=== PATIENT | female | born 1980 | race Caucasian/White ===

== ENCOUNTER → 2024-01-03 16:38 | Outpatient (REF) | payer MEDICARE, OTHER, SELFPAY | LOC: MRI 3T 16:38 | PROVIDERS: ATTENDING PHYSICIAN Surgery; FAMILY PHYSICIAN Family Medicine; OTHER PHYSICIAN Obstetrics & Gynecology | DX: N63.10 Unspecified lump in the right breast, unspecified quadrant (principal); Z80.3 Family history of malignant neoplasm of breast; N63.20 Unspecified lump in the left breast, unspecified quadrant | CPT/HCPCS: 77049; A9585 ==

== ENCOUNTER 2024-06-11 13:33 | Inpatient (IN) | payer MEDICARE, OTHER, SELFPAY ==
[2024-06-08 23:58] VITALS: BP 157/103
[2024-06-09] VITALS (10 sets, daily range): BP systolic 128–178; BP diastolic 73–101; BMI 29.0
--- NOTE | 2024-06-09 00:23 | ED.GENMED ---
History of Present Illness
<Joseph Linda MD, Resident - Last Filed: 06/09/24 03:51>
General
Chief Complaint: Abdominal Pain
Time Seen by Provider: 06/09/24 00:07
History of Present Illness
History of Present Illness:
44-year-old female with a history of migraine, seizure, lupus, presented to the ED with acute severe abdominal pain. The pain originally originates in the epigastrium and radiates to the back, and has been ongoing intermittently for the past 2
weeks. Patient describes the pain as 'intermittent gnawing' which became so severe today which prompted her to come to the ED. Additionally patient reports nausea and had experienced more than 4 episodes of vomiting yesterday which has been
persistent for the past 2 weeks. She visited her primary care physician recently and was prescribed Zofran, which initially helped with nausea. Patient states that she has been having ongoing diarrhea for the past 2 weeks. Patient is able to eat
but unable to keep anything down, as she experiences vomiting and diarrhea. Her last menstrual period was 2 weeks ago, sexually active, not using contraception.
Past History
<Joseph Linda MD, Resident - Last Filed: 06/09/24 03:51>
Past History
ED Past Medical History: GERD and Other (SLE)
ED Past Surgical History: , Urological and Other (Has had a ureteral stent placed, and also ureteroplasty )
Social History
Tobacco: Non-smoker
Alcohol: None
Drug: None
Personal:
Living: with family
Employment: Employed
Family History
Family History: Hypertension
Review of Systems
<Joseph Linda MD, Resident - Last Filed: 06/09/24 03:51>
Review of Systems
ABD/GI: Reports abdominal pain, nausea, vomiting and diarrhea
Phy Exam
<Joseph Linda MD, Resident - Last Filed: 06/09/24 03:51>
General Physical Exam
General Presentation: moderate distress
Gastrointestinal Exam
Gastrointestinal Exam: normal bowel sounds, soft, non distended and tender (Epigastric)
Course
<Joseph Linda MD, Resident - Last Filed: 06/09/24 03:51>
Orders/Labs/Results
Orders:
Orders
06/09/24 00:19
0.9% Sodium Chloride 250 ml [Nss] 250 ml IV BOLUS
Ketorolac [Toradol] 30 mg IV NOW STA
06/09/24 00:22
Electrocardiogram (*1) Urgent
Reason for Study: Abdominal Pain
EKG- Treatment ONCE
06/09/24 00:28
Add On- LAB Urgent
Tests Added?: serum hcg qualitative
06/09/24 00:34
Complete Blood Count/With Diff Urgent
Comprehensive Metabolic Panel Urgent
HCG, Serum Qualitative Screen Urgent
Comment: ADD ON
Lipase Urgent
06/09/24 00:35
Ondansetron HCl [Zofran] 4 mg PO NOW STA
06/09/24 00:36
Ondansetron Injectable [Zofran] 4 mg .ROUTE .STK-MED ONE
06/09/24 00:38
Ondansetron Injectable [Zofran] 4 mg IV NOW STA
06/09/24 00:40
0.9% Sodium Chloride 1000 ml [Nss] 1,000 ml IV BOLUS
HYDROmorphone [Dilaudid] 1 mg IV NOW STA
06/09/24 01:30
Urinalysis Reflex To Culture Urgent
Date Specimen was Collected: 06/09/24
Time Specimen was Collected: 01:29
Urine Drug Abuse Screen Urgent
Date Specimen was Collected: 06/09/24
Time Specimen was Collected: 01:29
06/09/24 01:35
CT Abd/pel Without Iv Or Oral Urgent
Comment:
Reason For Exam: abdominal pain
06/09/24 02:35
Mag Hydrox/Al Hydrox/Simeth [Maalox] 30 ml Phenobarb/Hyoscy/Atropine/Scop [] 10 ml PO NOW
Pantoprazole [Protonix IV] 40 mg IV NOW STA
06/09/24 02:42
Mag Hydrox/Al Hydrox/Simeth [Maalox] 30 ml .ROUTE .STK-MED ONE
Phenobarb/Hyoscy/Atropine/Scop [] 10 ml .ROUTE .STK-MED ONE
06/09/24 02:43
Sterile Water [Sterile Water For Injection] 10 ml .ROUTE .STK-MED ONE
06/09/24 03:02
Ondansetron HCl [Zofran] 4 mg PO NOW STA
06/09/24 03:35
Urine Drug Abuse Screen Routine
06/09/24 03:40
Admit/Transfer Patient As Directed
Co-Sign Provider:
Level of Care: Observation services
Assign to:: Medical/Surgical
Physician / Group: htay
Diagnosis: Intractable acute on chronic intermittent abdominal pian with N/V/D
Reason for Hospitalization: Intractable acute on chronic intermittent abdominal pian with N/V/D of unclear
origins
06/09/24 03:41
Add On- LAB Urgent
Tests Added?: urine drug screen
06/09/24 03:42
Code Status As Directed
Resuscitation Status: Full Code
Abnormal Lab Results
06/09/24
00:34
MCV 79.4 L fL
(81.0-99.0)
MCH 26.6 L pg
(27.0-31.0)
RDW 14.8 H %
(11.5-14.5)
MPV 11.3 H fL
(7.4-10.4)
Absolute Neuts (auto) 7.5 H 10^3/uL
(1.4-6.5)
Absolute Monos (auto) 0.7 H 10^3/uL
(0.1-0.6)
Neutrophils % 75.7 H %
(42.2-75.2)
Lymphocytes % 15.7 L %
(20.5-51.1)
Chloride 111 H mmol/L
(98-107)
Carbon Dioxide 19 L mmol/L
(22-30)
06/09/24 00:34
06/09/24 00:34
Vital Signs
Initial and Last Documented VS:
Initial Vital Signs
Temp Pulse Resp BP Pulse Ox
98.1 F 98 26 157/103 100
06/08/24 23:58 06/08/24 23:58 06/08/24 23:58 06/08/24 23:58 06/08/24 23:58
Last Documented Vital Signs
Temp Pulse Resp BP Pulse Ox
98.1 F 58 18 152/90 97
06/08/24 23:58 06/09/24 03:00 06/09/24 03:00 06/09/24 03:00 06/09/24 03:00
<Immanuel Christensen, DO - Last Filed: 06/09/24 00:44>
Orders/Labs/Results
Orders:
Orders
06/09/24 00:19
0.9% Sodium Chloride 250 ml [Nss] 250 ml IV BOLUS
Ketorolac [Toradol] 30 mg IV NOW STA
06/09/24 00:22
Electrocardiogram (*1) Urgent
Reason for Study: Abdominal Pain
EKG- Treatment ONCE
06/09/24 00:28
Add On- LAB Urgent
Tests Added?: serum hcg qualitative
06/09/24 00:34
Complete Blood Count/With Diff Urgent
Comprehensive Metabolic Panel Urgent
HCG, Serum Qualitative Screen Urgent
Comment: ADD ON
Lipase Urgent
06/09/24 00:35
Ondansetron HCl [Zofran] 4 mg PO NOW STA
06/09/24 00:36
Ondansetron Injectable [Zofran] 4 mg .ROUTE .STK-MED ONE
06/09/24 00:38
Ondansetron Injectable [Zofran] 4 mg IV NOW STA
06/09/24 00:40
0.9% Sodium Chloride 1000 ml [Nss] 1,000 ml IV BOLUS
HYDROmorphone [Dilaudid] 1 mg IV NOW STA
06/09/24 01:30
Urinalysis Reflex To Culture Urgent
Date Specimen was Collected: 06/09/24
Time Specimen was Collected: 01:29
Urine Drug Abuse Screen Urgent
Date Specimen was Collected: 06/09/24
Time Specimen was Collected: 01:29
06/09/24 01:35
CT Abd/pel Without Iv Or Oral Urgent
Comment:
Reason For Exam: abdominal pain
06/09/24 02:35
Mag Hydrox/Al Hydrox/Simeth [Maalox] 30 ml Phenobarb/Hyoscy/Atropine/Scop [] 10 ml PO NOW
Pantoprazole [Protonix IV] 40 mg IV NOW STA
06/09/24 02:42
Mag Hydrox/Al Hydrox/Simeth [Maalox] 30 ml .ROUTE .STK-MED ONE
Phenobarb/Hyoscy/Atropine/Scop [] 10 ml .ROUTE .STK-MED ONE
06/09/24 02:43
Sterile Water [Sterile Water For Injection] 10 ml .ROUTE .STK-MED ONE
06/09/24 03:02
Ondansetron HCl [Zofran] 4 mg PO NOW STA
06/09/24 03:35
Urine Drug Abuse Screen Routine
06/09/24 03:40
Admit/Transfer Patient As Directed
Co-Sign Provider:
Level of Care: Observation services
Assign to:: Medical/Surgical
Physician / Group: htay
Diagnosis: Intractable acute on chronic intermittent abdominal pian with N/V/D
Reason for Hospitalization: Intractable acute on chronic intermittent abdominal pian with N/V/D of unclear
origins
06/09/24 03:41
Add On- LAB Urgent
Tests Added?: urine drug screen
06/09/24 03:42
Code Status As Directed
Resuscitation Status: Full Code
Abnormal Lab Results
06/09/24
00:34
MCV 79.4 L fL
(81.0-99.0)
MCH 26.6 L pg
(27.0-31.0)
RDW 14.8 H %
(11.5-14.5)
MPV 11.3 H fL
(7.4-10.4)
Absolute Neuts (auto) 7.5 H 10^3/uL
(1.4-6.5)
Absolute Monos (auto) 0.7 H 10^3/uL
(0.1-0.6)
Neutrophils % 75.7 H %
(42.2-75.2)
Lymphocytes % 15.7 L %
(20.5-51.1)
Chloride 111 H mmol/L
(98-107)
Carbon Dioxide 19 L mmol/L
(22-30)
06/09/24 00:34
06/09/24 00:34
Vital Signs
Initial and Last Documented VS:
Initial Vital Signs
Temp Pulse Resp BP Pulse Ox
98.1 F 98 26 157/103 100
06/08/24 23:58 06/08/24 23:58 06/08/24 23:58 06/08/24 23:58 06/08/24 23:58
Last Documented Vital Signs
Temp Pulse Resp BP Pulse Ox
98.1 F 58 18 152/90 97
06/08/24 23:58 06/09/24 03:00 06/09/24 03:00 06/09/24 03:00 06/09/24 03:00
<Joseph Linda MD, Resident - Last Filed: 06/09/24 03:51>
*Critical Care Note
Total Time (30-74mins, 75-104mins- exclusive of procedures): Not Applicable
<Joseph Linda MD, Resident - Last Filed: 06/09/24 03:51>
Update Note
Update Note:
44-year-old female presented to the ED with severe abdominal epigastric pain radiating to her back.
Differential diagnosis
1. Acute pancreatitis
2. Choledocholithiasis
3. Ectopic
4. Bowel obstruction
This patient's physical examination reveals a tenderness to touch in the epigastrium, consult to general: No rebound tenderness or guarding, making peritonitis questionable. Patient is hemodynamically stable. Laboratory evaluation include CBC CMP
lipase and a CT scan of the abdomen pelvis to check for pancreatitis or bowel obstruction. Beta-hCG test will also be performed to rule out ectopic . The patient has a history of cholecystectomy and is currently taking 200 mg pregabalin
for neuropathy. CT scan of the abdomen/pelvis and lab evaluation is unremarkable. Patient is still nauseous, having up intermittent severe abdominal pain. Plan is to admit the patient for a intractable pain.
ED Attending Note
<Joseph Linda MD, Resident - Last Filed: 06/09/24 03:51>
-
Portions of this chart may have been created with voice recognition software.� Occasional wrong word or��sound alike� substitutions may have occurred due to the inherent limitations of voice recognition software.
<Immanuel Christensen DO - Last Filed: 06/09/24 00:44>
ED Attending Note
Patient seen and examined by attending physician: Yes
I performed a history and physical exam of patient and discussed management with resident, I reviewed resident's note and agree with documented findings and plan of care.: Yes
ED Attending Note:
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
scan
Discharge Plan
Departure
Patient Disposition: Admit
Date of Disposition: 06/09/24
Time of Disposition: 03:37
Admit to: Med/Surg
Presentation/result/management discussed w/ accepting MD/DO: Hospitalist
Patient with high blood pressure during this ER visit?: No
Condition: Good
Covid-19: Not Applicable
Discharge Problem:
Abdominal pain
Instructions: Abdominal Pain
Prescriptions:
No Action
topiramate [Topamax] 200 mg Tablet
250 mg PO HS
hydroxychloroquine 200 mg Tablet
200 mg PO HS
pregabalin [Lyrica] 200 mg Capsule
200 mg PO HS
pantoprazole [Protonix] [address] For Susp In Packet
40 mg PO BID
cholecalciferol (vitamin D3) [Vitamin D3] 50 mcg (2,000 unit) Tablet
50 mcg PO DAILY
Women's Multivitamin 18 mg iron-400 mcg-500 mg Tablet
1 tab PO DAILY
tahshtegzc-gfeijzyzlzpfi-glbq [Fioricet] 50-325-40 mg Tablet
1 tab PO Q6H PRN (Reason: migraines)
Referrals:
Massimo Javier DO [Family Provider] -
Interventions
Interventions:
*General Assessment Last Done: 06/08/24 23:58
*Neglect/Abuse Screening Last Done: 06/08/24 23:58
DS-Qzibwf-Aummoxqthu Assessment Last Done: 06/09/24 00:45
Discharge Date and Time
Print Language: POLISH
[2024-06-09] MEDS: TORADOL 30 MG IV (00:30)
[2024-06-09] MEDS: NSS 1000 IV ×3 (00:30→18:18)
[2024-06-09] MEDS: ZOFRAN 4 MG IV ×4 (00:38→20:06)
[2024-06-09] MEDS: DILAUDID 1 MG IV ×3 (00:46→21:03)
[2024-06-09 00:51] LABS: % Basophils 0.7 % (0-2); % Eosinophils 0.4 % (0-6); % Immature Granulocytes 0.3 % (0-0.5); % Lymphocytes 15.7 % (20.5-51.1); % Monocytes 7.2 % (1.7-9.3); % Neutrophils 75.7 % (42.2-75.2); Absolute Basophils 0.1 10^3/uL (0-0.2); Absolute Lymphocytes 1.6 10^3/uL (1.2-3.4); Absolute Monocytes 0.7 10^3/uL (0.1-0.6); Absolute Neutrophils 7.5 10^3/uL (1.4-6.5); HCG, Serum Qualitative Screen Negative; Hematocrit 37.3 % (37.0-47.0); Hemoglobin 12.5 g/dL (12.0-16.0); Mean Corp Hgb Conc. 33.5 g/dL (33.0-37.0); Mean Corpuscular Hgb 26.6 pg (27.0-31.0); Mean Corpuscular Volume 79.4 fL (81.0-99.0); Mean Platelet Volume 11.3 fL (7.4-10.4); Nucleated Red Blood Cells % 0 %; Platelet Count 294 10^3/uL (130-400); Red Cell Dist. Width 14.8 % (11.5-14.5); White Blood Cell Count 9.9 10^3/uL (4.8-10.8)
[2024-06-09 01:22] LABS: ALT (SGPT) 13 U/L (0-35); AST (SGOT) 18 U/L (14-36); Albumin 4.5 g/dl (3.5-5.0); Alkaline Phosphatase 58 U/L (38-126); Blood Urea Nitrogen 14 mg/dl (7-17); Calcium 9.8 mg/dl (8.4-10.2); Carbon Dioxide 19 mmol/L (22-30); Chloride 111 mmol/L (98-107); Estimated Creatinine Clearance 91 ml/min; Glucose 95 mg/dl (70-99); Lipase 97 U/L (23-300); Potassium 3.7 mmol/L (3.5-5.1); Sodium 139 mmol/L (135-145); Total Bilirubin 0.6 mg/dl (0.2-1.3); Total Protein 6.9 g/dl (6.3-8.2); eGFR > 60.00
[2024-06-09 01:37] LABS: Urine Albumin Negative (Neg - Trace); Urine Bilirubin Negative (Negative); Urine Character Clear (Clear); Urine Color Yellow; Urine Glucose Negative (Negative); Urine Ketone Negative (Negative); Urine Leukocyte Negative (Negative); Urine Nitrite Negative (Negative); Urine Occult Blood Negative (Negative); Urine Specific Gravity 1.005 (<1.030); Urine Urobilinogen Negative (Neg - 1+)
[2024-06-09] MEDS: PROTONIX IV 40 MG IV ×2 (02:45→20:06)
[2024-06-09] MEDS: MAALOX 40 PO (02:45)
[2024-06-09] MEDS: ZOFRAN 4 MG PO (03:19)
--- NOTE | 2024-06-09 03:35 | HPS.HSE ---
Family Physician
-
Family Physician: Massimo Javier
Chief Complaint
-
abdominal pain with N/V/D
History of Present Illness
HPI
44F HX lupus, Sz common migraines seen at ER for evaluation of abdominal pain
Abdominal pain; acute on chronic intermittent
- intermittently for last 2 weeks
- at epigastrium with radiates to the back. Normal Lipase: received IV Dilaudid 1mg plus IV Toradol 3 mg at ER
- associated with N/ V more than 4 episodes yesterday : Received 3 doses of IV Zofran 4mg at ER
- unable to keep anything down
- also ongoing diarrhea for last 2 weeks
- HX abdominal pain with many ER visits in the past
At ER:
unremarkable VSS
Unremarkable LFTs and Lipase
CT AP is unremarkable for acute process
Medical History
Past Medical History
Past Medical History: Reports Other ( Lupus.Migraine , abdominal pain )
Past Surgical History: Reports Other
Additional Past Surgical History:
Cholecystectomy.
section.
UPJ surgery.
Social History
Tobacco: Non-smoker
Alcohol: Occasional
Drug: None
Family History
Family History: Not pertinent
Allergies / Home Medications
Allergies reflects when Allergies were last updated in [employer]
Home Medications with original date entered in [employer]
Allergy/Medication List:
Allergies
Allergy/AdvReac Type Severity Reaction Status Date / Time
latex Allergy skin Verified 09/16/23 06:42
shedding
methotrexate [Methotrexate] Allergy Mucositis Verified 09/16/23 06:42
Penicillins Allergy Hives Verified 09/16/23 06:42
Sulfa (Sulfonamide Allergy Hives Verified 09/16/23 06:42
Antibiotics)
Home Medications
cholecalciferol (vitamin D3) 50 mcg (2,000 unit) tablet (Vitamin D3) 50 mcg PO DAILY 01/10/23
hydroxychloroquine 200 mg tablet 200 mg PO HS 01/10/23
mpzjzxfj-ukv-javs-FA-Ca carb-vit K 18 mg iron-400 mcg-500 mg tablet 1 tab PO DAILY 01/10/23
pantoprazole 40 mg granules delayed-release for susp in packet (Protonix) 40 mg PO BID 01/10/23
pregabalin 200 mg capsule (Lyrica) 200 mg PO HS 01/10/23
topiramate 200 mg tablet (Topamax) 250 mg PO HS 01/10/23
xzzcehvnos-zzvdlzboekxbs-ywljvekc 50 mg-325 mg-40 mg tablet 1 tab PO Q6H PRN migraines 06/09/24
Review of Systems
-
Constitutional: Reports No Symptoms
EENT: Reports No Symptoms
Respiratory: Reports No Symptoms
Cardiac: Reports No Symptoms
Abdomen/GI: Reports See HPI, Abdominal Pain, Nausea, Vomiting and Diarrhea
: Reports No Symptoms
Musculoskeletal: Reports No Symptoms
Skin: Reports No Symptoms
Neurological: Reports No Symptoms
Endocrine: Reports No Symptoms
Hematologic/Lymphatic: Reports No Symptoms
Psych: Reports No Symptoms
Physical Exam
Vital Signs
Vital Signs
Temp Pulse Resp BP Pulse Ox
98.1 F 60 20 141/90 99
06/08/24 23:58 06/09/24 02:00 06/09/24 02:00 06/09/24 02:00 06/09/24 02:00
Physical Exam
General: Conversant, Appears in Distress and Pain (epigastrium )
HEENT: NormoCephalic, Anicteric and Moist mucous membranes
Respiratory: Clear; No Wheezes, Rales or Rhonchi
Cardiac: S1/S2 and Regular Rhythm
Breast: Deferred by me
GI: Soft and Tender (tender epigastrium with light palpation )
Rectal: Deferred by Provider
Genito-urinary: Deferred by me
Musculoskeletal: No Edema
Skin: Warm and Dry
Neuro: Awake and Alert
Psych: Anxious
Laboratory Results
-
06/09/24 00:34
06/09/24 00:34
Laboratory Results
Total Bilirubin 0.6 mg/dl (0.2-1.3) 06/09/24 00:34
AST 18 U/L (14-36) 06/09/24 00:34
ALT 13 U/L (0-35) 06/09/24 00:34
Alkaline Phosphatase 58 U/L (38-126) 06/09/24 00:34
Lipase 97 U/L (23-300) 06/09/24 00:34
Data Reviewed
-
CT Scan: Report Reviewed by me
Lab Data: Labs Reviewed by me
Old Records: Reviewed
Impression/Plan
-
Reviewed VS: afebrile RR 20-25 POx 99 on RA BPand HR are unremarkable
Data
nl WCC
Hgb 12.5 MCV 79
Cl 111
CO2 19
nl Cr
e GFR > 60
Nl LFts
nl Lipase
NEG UA
NEG HCG
CT AP without contrast
- no acute process
- cholecystectomy
- no hydronephrosis
- no SBO
- no aortic dissection
NO PRIOR hospitalist admission:
ASSESSMENT & PLAN
Pending Rx reconciliation
Intractable acute on chronic intermittent abdominal pian with N/V/D DDX : PUdz
unremarkable VSS
Unremarkable LFTs and Lipase
CT AP is unremarkable for acute process
- UDS to complete w/u
- clear diet - ADAT
- Supportive care with IVF, anti emetics and Narcotic PRN
- IV PPI daily
- GI consult
HX Lupus on Hydroxychloroquine and Lyrica
HX Migraine on Topamax
DVT Px: SCD
Code: Full code
Obs MS
[2024-06-09 04:06] LABS: Amphetamines Negative (Negative); Barbiturates Negative (Negative); Benzodiazepines Positive (Negative); Buprenorphine Negative (Negative); Cocaine Negative (Negative); Methadone Negative (Negative); Methamphetamines Negative (Negative)
[2024-06-09 04:07] LABS: Marijuana Negative (Negative); Opiates Positive (Negative); Phencyclidine Negative (Negative); Tricyclic Antidepressants Negative (Negative)
[2024-06-09 04:33] LABS: Fentanyl, Urine Negative (Negative)
[2024-06-09] MEDS: DILAUDID 0.5 MG IV (06:17)
[2024-06-09 07:33] LABS: Hematocrit 37.1 % (37.0-47.0); Hemoglobin 12.4 g/dL (12.0-16.0); Mean Corp Hgb Conc. 33.4 g/dL (33.0-37.0); Mean Corpuscular Hgb 26.7 pg (27.0-31.0); Mean Corpuscular Volume 79.8 fL (81.0-99.0); Platelet Count 269 10^3/uL (130-400); Red Blood Cell Count 4.65 10^6/uL (4.20-5.40); Red Cell Dist. Width 14.8 % (11.5-14.5); White Blood Cell Count 8.3 10^3/uL (4.8-10.8)
[2024-06-09 08:10] LABS: Blood Urea Nitrogen 10 mg/dl (7-17); Calcium 9.2 mg/dl (8.4-10.2); Carbon Dioxide 21 mmol/L (22-30); Chloride 109 mmol/L (98-107); Estimated Creatinine Clearance 97 ml/min; Glucose 87 mg/dl (70-99); Potassium 3.6 mmol/L (3.5-5.1); Sodium 137 mmol/L (135-145); eGFR > 60.00
--- NOTE | 2024-06-09 08:35 | W.PN.HOSP.TC ---
Today's Communication/Plan
-
see bold
Assessment / Plan
Assessment / Plan
HPI: 44yo female presents with epigastric pain, n/v, diarrhea over the last 2 weeks. She has been unable to tolerate POs. Denies recent travel, sick contacts. She had stool studies with her PCP that came back negative. She has hx abd pain in past
evaluated by Dr Garcia- EGD bile gastritis in [address] Cordero as well, dx'd with gastroparesis treated with small frequent meals and reglan for a period of time. Sx stabilized and has not been active until recently. CT negative for acute
pathology. Denies NSAIDs.
#Severe epigastric abdominal pain
#History of bile gastritis
Appreciate GI input, for EGD tomorrow
Increase Protonix to 40 mg IV twice daily, resume Carafate
Avoid NSAIDs
#History of lupus
Continue hydroxychloroquine and Lyrica
#History of migraine headaches
Continue Topamax and Fioricet
DVT prophylaxis�SCDs
Full code
Physical Exam
General: No acute distress
HEENT: Normocephalic, Atraumatic, EOMI, MMM
Respiratory: Clear to Auscultation bilaterally
Cardiac: Normal S1/S2, Regular Rate and Rhythm
GI: Soft, exquisitely tender at the epigastrium, Nondistended, Normal Bowel Sounds
Extremities: No Clubbing, Cyanosis, or Edema
Neuro: Nonfocal/Grossly Intact
Psych: Calm, Cooperative
Derm: No Visible lesions
Anticipated Discharge: Within 24 hours
Subjective/Interval History
-
Date of Service: June 09, 2024
Patient continues to have severe burning epigastric pain, worse with walking. No fever, no vomiting.
Objective Data
-
Labs:
Laboratory Results
06/09/24 06/09/24
00:34 06:26
WBC 9.9 8.3
Hgb 12.5 12.4
Hct 37.3 37.1
Plt Count 294 269
Sodium 139 137
Potassium 3.7 3.6
Chloride 111 H 109 H
Carbon Dioxide 19 L 21 L
BUN 14 10
Creatinine 0.8 0.7
Glucose 95 87
Calcium 9.8 9.2
Total Bilirubin 0.6
AST 18
ALT 13
Alkaline Phosphatase 58
Vital Signs:
Vital Signs
Temp Pulse Resp BP Pulse Ox
97.9 F 77 16 155/95 100
06/09/24 07:00 06/09/24 07:00 06/09/24 07:00 06/09/24 07:00 06/09/24 07:00
[2024-06-09] MEDS: PEPCID 20 MG IV ×2 (11:29→20:06)
[2024-06-09] MEDS: NSS (PRESERVATIVE FREE) 8 ML IV ×2 (11:30→22:30)
[2024-06-09] MEDS: CARAFATE SUSPENSION 1 GM PO (11:30)
--- NOTE | 2024-06-09 11:42 | CON.GI ---
Addendum entered and electronically signed by Christofer Moore MD 06/09/24 13:12:
I saw and examined the patient.
The LEAD SALES CONSULTANT or PA's note was reviewed and I agree with the note.
Comment: 44yo female presents with epigastric pain, n/v, diarrhea over the last 2 weeks. She has been unable to tolerate POs. Denies recent travel, sick contacts. She had stool studies with her PCP that came back negative. She has hx abd pain in
past evaluated by Dr Garcia- EGD bile gastritis in [address] Cordero as well, dx'd with gastroparesis treated with small frequent meals and reglan for a period of time. Sx stabilized and has not been active until recently. CT negative for
acute pathology. Denies NSAIDs
REC:
EGD tomorrow to r/o PUD, gastritis.
Cont clears and can try advancing after EGD
Consider short term reglan if not improving
Cont PPI, carafate
Addendum entered and electronically signed by Rosalind Thomas NP 06/09/24 12:12:
IV pepcid BID and sucralfate also started by Dr. Izaguirre.
Original Note:
Consultation
-
Date/Time Consultation Requested: 06/09/24 @ 05:51
Date/Time Consultation Performed: 06/09/24 @ 11:30
Requesting Provider: Dr. Wright
Performing Provider: HYUN Rodriguez; Dr. Christofer Moore
Reason for Consultation: Intractable acute on chronic intermittent abdominal pian with N/V/D
Medical History
Chief Complaint / HPI
Chief Complaint: abdominal pain, n/v/d
History of Present Illness:
The patient is a pleasant 44-year-old female with a past medical history significant for UPJ obstruction status post multiple ureteral pyeloplasty and ureteral stenting, chronic GERD on PPI, IBS constipation alternating with diarrhea, chronic
abdominal pain, reported gastroparesis, PUD 2001 (reported), migraines, lupus, who presented to the emergency room with complaint abdominal pain, nausea, vomiting, and diarrhea, which remains to evaluate for. Upon review of prior records, the
patient is known to Dr. Garcia outpatient last seen in the office in 2020 for evaluation of abdominal pain. She underwent colonoscopy in 2021 where a 5mm polyp was removed otherwise was normal with no findings to explain her pain. She was advised
to follow-up in the office for re-evaluation but did not return to the office. She had an EGD the same day which showed gastritis and bilious gastric fluid. She has been maintained on PPI therapy chronically for this. Today she reports that she has
been having severe epigastric discomfort that started 2 weeks ago. The pain for like a band around the top of her abdomen that was constant. She notes due to her pain she was unable to eat much, and that started on a bland diet although this was
not helping. She notes several days ago with acute onset of nausea with vomiting and was unable to keep anything down. She also admits to bouts of diarrhea that continued for several days. She saw her PCP who ordered stool studies which all were
negative (Giardia, crypto, ova, parasites, C. difficile, stool culture, norovirus). She was also prescribed Zofran but this did not help. She continues on her daily PPI which also did not help her symptoms. She was fearful that she had a
recurrent peptic ulcer (history of peptic ulcer disease in 2001), therefore she came to the emergency room for further evaluation. She notes multiple bowel movements per day, seeing a small amount of red blood at 1 point but this has resolved. She
denies any hematemesis, and at one point liquids from above and below became clear. She denies any unintentional weight loss despite her loss of appetite. She notes chronically that she does have alternating constipation with diarrhea at baseline.
She also admits to chronic abdominal pain that has been followed historically. She has seen Dr. Cordero at [place] in the past and was told that she had gastroparesis at 1 time. She denies any history of diabetes or use of narcotics. She does
take Fioricet for migraines which she had been using more frequently the past month or so. She otherwise denies use of NSAIDs or blood thinners. Her last EGD and colonoscopy were done as above. She continues with significant nausea although
without further vomiting. She does admit to a low-grade temperature of 99 along with sweats but denies any chills. She denies any sick contacts or recent travel. She continues with significant upper abdominal tenderness on exam. She also notes
that she has been under a lot of stress as her mother has been ill and is pending hospice evaluation and her son is also getting next Konstantin. Routine CBC and CMP essentially unrevealing. Lipase level was normal, hCG negative. A CT scan
of the abdomen pelvis with IV contrast was done which showed no acute findings. She was admitted for further evaluation by GI.
Past Medical History
Past Medical History: GERD and Other (lupus, chronic migraines, UPJ obstruction with ureteral pyeloplasty x4 and ureteral stenting, IBS c/d, chronic abdominal pain, ?gastroparesis)
Past Surgical History: Cholecystectomy, and Urological (ureteral stenting, pyeloplasty x4)
Social History
Tobacco: Non-Smoker
Alcohol: None
Drug: None
Personal:
Living: With Family
Family History
Family History: Reviewed & Not Pertinent
Allergies / Home Medications
Allergy/AdvReac Type Severity Reaction Status Date / Time
latex Allergy skin Verified 06/09/24 07:56
shedding
methotrexate [Methotrexate] Allergy Mucositis Verified 06/09/24 07:56
Penicillins Allergy Hives Verified 06/09/24 07:56
Sulfa (Sulfonamide Allergy Hives Verified 06/09/24 07:56
Antibiotics)
�Medication �Instructions �Recorded
cholecalciferol (vitamin D3) 50 50 mcg PO DAILY 01/10/23
mcg (2,000 unit) tablet (Vitamin
D3)
hydroxychloroquine 200 mg tablet 200 mg PO HS 01/10/23
mcprznlp-obb-beqr-FA-Ca carb-vit K 1 tab PO DAILY 01/10/23
18 mg iron-400 mcg-500 mg tablet
pantoprazole 40 mg granules 40 mg PO BID 01/10/23
delayed-release for susp in packet
(Protonix)
pregabalin 200 mg capsule (Lyrica) 200 mg PO HS 01/10/23
topiramate 200 mg tablet (Topamax) 250 mg PO HS 01/10/23
ijagycrwhf-oxmpxnsatllqb-yajzpfct 1 tab PO Q6H PRN migraines 06/09/24
50 mg-325 mg-40 mg tablet
Review of Systems
-
History Source: Patient
Constitutional: Reports Fever (low grade 99) and Other (sweats)
EENT: Reports No Symptoms
Respiratory: Reports No Symptoms
Cardiac: Reports No Symptoms
Abdomen/GI: Reports Abdominal Pain, Nausea, Vomiting and Diarrhea
: Reports No Symptoms
Musculoskeletal: Reports No Symptoms
Skin: Reports No Symptoms
Neurological: Reports No Symptoms
Vital Signs
Temp Pulse Resp BP Pulse Ox
97.9 F 77 16 155/95 100
06/09/24 07:00 06/09/24 07:00 06/09/24 07:00 06/09/24 07:00 06/09/24 07:00
Physical Exam
Exam
General: Well Developed, Well Nourished and Pain
HEENT: Normocephalic, Anicteric and Atraumatic
Respiratory: Clear
Cardiac: S1/S2 and Regular Rhythm
Breast: Deferred by me
GI: Soft, Normal Bowel Sounds, Tender (diffusely tender to upper abdomen on exam (limited exam due to pain)) and Distended (mildly distended)
Rectal: Deferred by Provider
Musculoskeletal: No Edema
Skin: Warm and Dry
Neuro: Awake, Alert and Oriented
Psych: Calm
Results
WBC 8.3 10^3/uL (4.8-10.8) 06/09/24 06:26
Hgb 12.4 g/dL (12.0-16.0) 06/09/24 06:26
Hct 37.1 % (37.0-47.0) 06/09/24 06:26
MCV 79.8 fL (81.0-99.0) L 06/09/24 06:26
Plt Count 269 10^3/uL (130-400) 06/09/24 06:26
Absolute Neuts (auto) 7.5 10^3/uL (1.4-6.5) H 06/09/24 00:34
Sodium 137 mmol/L (135-145) 06/09/24 06:26
Potassium 3.6 mmol/L (3.5-5.1) 06/09/24 06:26
Chloride 109 mmol/L (98-107) H 06/09/24 06:26
Carbon Dioxide 21 mmol/L (22-30) L 06/09/24 06:26
BUN 10 mg/dl (7-17) 06/09/24 06:26
Creatinine 0.7 mg/dL (0.6-1.0) 06/09/24 06:26
Calcium 9.2 mg/dl (8.4-10.2) 06/09/24 06:26
Total Bilirubin 0.6 mg/dl (0.2-1.3) 06/09/24 00:34
AST 18 U/L (14-36) 06/09/24 00:34
ALT 13 U/L (0-35) 06/09/24 00:34
Alkaline Phosphatase 58 U/L (38-126) 06/09/24 00:34
Lipase 97 U/L (23-300) 06/09/24 00:34
Diagnostic Image Results:
06/09/24 CT A/P w/o contrast:
1. No CT abnormalities identified to explain the patient's symptoms .
2. No evidence of intestinal obstruction, bowel inflammatory process, nephrolithiasis, hydronephrosis, or abscess formation.
Prior GI Procedures:
EGD: 12/09/23 Dr. Garcia: Normal esophagus. Biopsied. Z-line regular, 40 cm from the incisors. Mild antral gastritis. Biopsied. Bilious gastric fluid. Fluid aspiration performed. Normal examined duodenum. Biopsied.
Colonoscopy: 12/09/23 Dr. Garcia: One 5 mm polyp in the distal ascending colon. Biopsied. Non-bleeding external hemorrhoids. The examined portion of the ileum was normal. The mucosa of the left side of your colon was
normal. No abnormalities to account for your pain.
Assessment / Plan
-
The patient is a pleasant 44-year-old female with a past medical history significant for UPJ obstruction status post multiple ureteral pyeloplasty and ureteral stenting, chronic GERD on PPI, IBS constipation alternating with diarrhea, chronic
abdominal pain, reported gastroparesis, PUD 2001 (reported), migraines, lupus, who presented to the emergency room with complaint abdominal pain, nausea, vomiting, and diarrhea, which remains to evaluate for. Work-up thus far with no obvious source
of her current symptoms. CT A/P without acute findings. Labs essentially unrevealing. She has a hx of PUD and gastroparesis reported. She denies NSAID use. She denies hx diabetes or narcotic use. Lipase level and LFTs were normal.
Problem list:
-intractable abdominal pain, nausea, vomiting
-diarrhea, hx IBS constipation alternating with diarrhea
-reported hematochezia, resolved
-hx PUD 2001
-chronic gastritis on PPI
-?gastroparesis
-Lupus
-migraines
-UPJ obstruction s/p recurrent ureteral pyeloplasty and stenting
Recommendations:
-Etiology of current symptoms possibly secondary to gastroenteritis versus peptic ulcer disease versus gastroparesis versus IBS flare versus other.
---CT imaging unrevealing for cause of her abdominal pain. Her labs essentially are unrevealing. She has had no further vomiting but continues with pain and nausea.
-Given her ongoing symptoms and reported history of gastroparesis and peptic ulcer, would proceed with EGD tomorrow for further evaluation. She does have a lot of things going on in her personal life causing her stress which may also be
contributing but given her history cannot r/o ulcer. Discussed with Dr. Moore.
-Okay for clear liquid diet today if she tolerates, and n.p.o. after midnight
-Continue Zofran as needed
-Will increase PPI to twice daily
-Will check stool studies to rule out infection due to ongoing diarrhea
-Will check TSH and hemoglobin A1c
-PRN analgesics
-She should avoid NSAIDs
-Further plan pending above
Data Reviewed
-
CT Scan: Report Reviewed by me and Discussed with Physician
Old Records: Reviewed
-
-
Thank you for consultation and allowing me to participate in the patient's care. Please call the construction sales manager GI physician during the after hours with any questions or concerns.
--- NOTE | 2024-06-09 15:13 | CM ---
Chart reviewed ans spoke with pt at bedside
Pt admitted with HX lupus, Sz and migraines here for evaluation of abdominal pain
Pt reports she lives with her in a 2 story home
Currently on disability due to her lupus hx, independent with ADL's, home management
Has ride at d/c
DME - none
SNF/HH - no hx
PCP - DR Cristian Dietz
Pharm - [facility]
Discussed [facility] - on chart
CM will follow for d/c needs
Plan - anticipate home no needs
[2024-06-09] MEDS: CARAFATE SUSPENSION PO (18:16)
[2024-06-09] MEDS: NSS (PRESERVATIVE FREE) 10 ML IV (20:05)
[2024-06-09] MEDS: REGLAN 10 MG IV (22:15)
[2024-06-10] MEDS: CARAFATE SUSPENSION PO ×4 (03:05→22:30)
[2024-06-10] MEDS: REGLAN 10 MG IV ×2 (04:02→12:15)
[2024-06-10] MEDS: NSS 1000 IV ×2 (04:03→15:09)
[2024-06-10] MEDS: DILAUDID 1 MG IV ×3 (04:03→22:39)
[2024-06-10 07:00] VITALS: BP 134/88
--- NOTE | 2024-06-10 08:16 | W.PN.HOSP.TC ---
Today's Communication/Plan
-
For endoscopy today
Assessment / Plan
Assessment / Plan
HPI: 44yo female presents with epigastric pain, n/v, diarrhea over the last 2 weeks. She has been unable to tolerate POs. Denies recent travel, sick contacts. She had stool studies with her PCP that came back negative. She has hx abd pain in past
evaluated by Dr Garcia- EGD bile gastritis in [address] Cordero as well, dx'd with gastroparesis treated with small frequent meals and reglan for a period of time. Sx stabilized and has not been active until recently. CT negative for acute
pathology. Denies NSAIDs.
#Severe epigastric abdominal pain
#History of bile gastritis
Appreciate GI input, for EGD today
Increase Protonix to 40 mg IV twice daily, resumed Carafate yesterday
Continue Reglan IV as needed, added IV Compazine for nausea/vomiting not relieved with Reglan. Patient does not want Zofran
Avoid NSAIDs
#History of lupus
Continue hydroxychloroquine and Lyrica
#History of migraine headaches
Continue Topamax and Fioricet
DVT prophylaxis�SCDs
Full code
Total time spent to see the patient on the floor, examine the patient, review data and lab results, discuss treatment plan with patient, nursing staff around 40 minutes.
Physical Exam
General: No acute distress
HEENT: Normocephalic, Atraumatic, EOMI, MMM
Respiratory: Clear to Auscultation bilaterally
Cardiac: Normal S1/S2, Regular Rate and Rhythm
GI: Soft, exquisitely tender at the epigastrium, Nondistended, Normal Bowel Sounds
Extremities: No Clubbing, Cyanosis, or Edema
Neuro: Nonfocal/Grossly Intact
Psych: Calm, Cooperative
Derm: No Visible lesions
Anticipated Discharge: Within 24 hours
Subjective/Interval History
-
Date of Service: June 10, 2024
Patient continues to have severe epigastric abdominal pain with nausea/vomiting. She last vomited at 4 AM. Also reporting lightheadedness and dizziness. No fever.
Objective Data
-
Vital Signs:
Vital Signs
Temp Pulse Resp BP Pulse Ox
98.3 F 83 16 134/88 100
06/10/24 07:00 06/10/24 07:00 06/10/24 07:00 06/10/24 07:00 06/10/24 07:00
I&O
06/09/24 06/10/24 06/11/24
06:59 06:59 06:59
Intake Total 1580 / 1580 120 / 120
Balance 1580 / 1580 120 / 120
[2024-06-10] MEDS: PEPCID 20 MG IV ×2 (08:27→20:24)
[2024-06-10] MEDS: PROTONIX IV 40 MG IV ×2 (08:27→20:23)
[2024-06-10] MEDS: NSS (PRESERVATIVE FREE) 10 ML IV ×2 (08:27→20:24)
--- NOTE | 2024-06-10 10:32 | W.PN.UPDATE ---
Update Note
Progress Note Update
EGD done
Normal esophagus
Antral erythema-bx'd
Gastric fundic polyp-bx'd
SBBx taken
REC:
Await path
Continue reglan prn
Resume attempt at diet
[2024-06-10] MEDS: NSS (PRESERVATIVE FREE) IV ×2 (12:08→22:00)
[2024-06-10] MEDS: COMPAZINE 10 MG IV ×2 (14:53→20:21)
[2024-06-10 15:00] VITALS: BP 134/86
[2024-06-10 15:02] VITALS: BP 140/85
[2024-06-10] MEDS: CARAFATE SUSPENSION 1 GM PO (18:11)
[2024-06-10] MEDS: NSS (PRESERVATIVE FREE) 8 ML IV (20:26)
[2024-06-10 20:33] VITALS: BP 153/96; BMI 30.9
[2024-06-10 23:30] VITALS: BP 137/79
[2024-06-11] MEDS: NSS 1000 IV (03:11)
[2024-06-11] MEDS: COMPAZINE 10 MG IV (06:54)
[2024-06-11 06:58] LABS: Hematocrit 37.1 % (37.0-47.0); Hemoglobin 12.5 g/dL (12.0-16.0); Mean Corp Hgb Conc. 33.7 g/dL (33.0-37.0); Mean Corpuscular Hgb 27.5 pg (27.0-31.0); Mean Corpuscular Volume 81.7 fL (81.0-99.0); Mean Platelet Volume 11.7 fL (7.4-10.4); Platelet Count 237 10^3/uL (130-400); Red Blood Cell Count 4.54 10^6/uL (4.20-5.40); Red Cell Dist. Width 14.6 % (11.5-14.5); White Blood Cell Count 8.6 10^3/uL (4.8-10.8)
[2024-06-11 07:00] VITALS: BP 140/92
[2024-06-11 07:15] LABS: Blood Urea Nitrogen 6 mg/dl (7-17); Calcium 9.2 mg/dl (8.4-10.2); Carbon Dioxide 25 mmol/L (22-30); Chloride 106 mmol/L (98-107); Estimated Creatinine Clearance 104 ml/min; Glucose 88 mg/dl (70-99); Phosphorus 2.8 mg/dl (2.5-4.5); Potassium 3.2 mmol/L (3.5-5.1); Sodium 139 mmol/L (135-145); eGFR > 60.00
[2024-06-11] MEDS: DILAUDID 1 MG IV (08:06)
[2024-06-11] MEDS: PROTONIX IV 40 MG IV (08:06)
[2024-06-11] MEDS: PEPCID 20 MG IV (08:07)
[2024-06-11] MEDS: NSS (PRESERVATIVE FREE) 8 ML IV (08:07)
[2024-06-11] MEDS: NSS (PRESERVATIVE FREE) 10 ML IV (08:07)
[2024-06-11] MEDS: CARAFATE SUSPENSION 1 GM PO ×2 (08:07→11:05)
--- NOTE | 2024-06-11 10:44 | W.PN.GI.CBS2 ---
Addendum entered and electronically signed by Christofer Moore MD 06/11/24 12:11:
I saw and examined the patient.
The MANAGER EXCHANGE or PA's note was reviewed and I agree with the note.
Comment: Feels better today. Nausea improved with compazine. Wants to go home
REC:
OK for d/c
D/C reglan
OK to use compazine prn
will call pt with path later this week
F/U with me in the office
Original Note:
Today's Communication / Plan
-
as above
Assessment / Plan
-
The patient is a pleasant 44-year-old female with a past medical history significant for UPJ obstruction status post multiple ureteral pyeloplasty and ureteral stenting, chronic GERD on PPI, IBS constipation alternating with diarrhea, chronic
abdominal pain, reported gastroparesis, PUD 2001 (reported), migraines, lupus, who presented to the emergency room with complaint abdominal pain, nausea, vomiting, and diarrhea, which remains to evaluate for. Work-up thus far with no obvious source
of her current symptoms. CT A/P without acute findings. Labs essentially unrevealing. She has a hx of PUD and gastroparesis reported. She denies NSAID use. She denies hx diabetes or narcotic use. Lipase level and LFTs were normal.
Problem list:
-intractable abdominal pain, nausea, vomiting-> improving
-diarrhea, hx IBS constipation alternating with diarrhea
-reported hematochezia, resolved
-hx PUD 2001
-chronic gastritis on PPI
-?gastroparesis
-Lupus
-migraines
-UPJ obstruction s/p recurrent ureteral pyeloplasty and stenting
EGD 06/10/24:
- Normal esophagus.
- Erythematous mucosa in the antrum. Biopsied.
- A single gastric polyp. Biopsied.
- Normal examined duodenum. Biopsied.
Recommendations:
-Continue Compazine
-Continue Protonix 40 mg BID
-Continue Famotidine 20 mg BID
-Continue Carafate QID
-Minimize narcotics- discussed with patient
-Will call patient with bx results
-Discussed small meals with supplemental full liquids protein shakes during this episode
Subjective
Subjective
Date of Service: June 11, 2024
Patient states that Compazine works better than Reglan for her. Nausea improving with that. She did eat a piece of a roll. Discussed avoiding narcotics. She states she will stop at this point. Discussed small meals. Full liquid such as Ensure in
between. No BM this am. She would like to go home today.
Objective
Data Reviewed
Laboratory Data:
Laboratory Results
06/11/24 06:02
06/11/24 06:02
Laboratory Results
Phosphorus 2.8 mg/dl (2.5-4.5) 06/11/24 06:02
Magnesium 2.0 mg/dl (1.6-2.3) 06/11/24 06:02
Total Bilirubin 0.6 mg/dl (0.2-1.3) 06/09/24 00:34
AST 18 U/L (14-36) 06/09/24 00:34
ALT 13 U/L (0-35) 06/09/24 00:34
Alkaline Phosphatase 58 U/L (38-126) 06/09/24 00:34
Lipase 97 U/L (23-300) 06/09/24 00:34
Vital Signs and I&O:
Vital Signs
Temp Pulse Resp BP Pulse Ox
98.3 F 81 12 140/92 98
06/11/24 07:00 06/11/24 07:00 06/11/24 07:00 06/11/24 07:00 06/11/24 07:00
I&O
06/10/24 06/11/24 06/12/24
06:59 06:59 06:59
Intake Total 1580 / 1580 1845 / 1845
Balance 1580 / 1579
Physical Exam
Physical Exam
HEENT: Anicteric
Cardiology: Normal Sinus Rhythm
Pulmonary: Clear
GI: Soft, Non Distended, Tender (mild epigastric tenderness) and Normal Bowel Sounds
Extremities: No Edema
Neuro: Non Focal
--- NOTE | 2024-06-11 12:50 | W.PN.HOSP.TC ---
Today's Communication/Plan
-
Discharge
Assessment / Plan
Assessment / Plan
Gen-AAOx3, NAD
HEENT-NC, AT, anicteric, clear oral mm
Neck-supple
CV-reg, no M, +S1/S2
Lungs-clear B/L
Abd-soft, NT, ND
Ext-no edema
Musculoskeletal-no cyanosis, clubbing
Skin-warm and dry
Neuro-grossly non-focal
Psych-calm, cooperative
Nonulcer dyspepsia -EGD completed yesterday, findings of normal esophagus, erythematous mucosa in the antrum, single gastric polyp, normal duodenum. Biopsies done for H. pylori testing. GI service okay with discharge on Protonix twice daily,
Compazine as needed, famotidine twice daily, Carafate 4 times daily. Outpatient follow-up.
History of lupus
Continue hydroxychloroquine and Lyrica
History of migraine headaches
Continue Topamax and Fioricet
Anxiety/stress -mother is currently hospitalized and not doing well. This is causing undue stress to this patient.
Full code
Dispo -medically stable for discharge. Outpatient follow-up with PCP and GI.
32 minutes spent in discharge process.
Anticipated Discharge: Today
Subjective/Interval History
-
Date of Service: June 11, 2024
Patient seen and examined. Eager to go home. Overall feeling better.
Objective Data
-
Labs:
Laboratory Results
06/11/24
06:02
WBC 8.6
Hgb 12.5
Hct 37.1
Plt Count 237
Sodium 139
Potassium 3.2 L
Chloride 106
Carbon Dioxide 25
BUN 6 L
Creatinine 0.7
Glucose 88
Calcium 9.2
Vital Signs:
Vital Signs
Temp Pulse Resp BP Pulse Ox
98.3 F 81 12 140/92 98
06/11/24 07:00 06/11/24 07:00 06/11/24 07:00 06/11/24 07:00 06/11/24 07:00
I&O
06/10/24 06/11/24 06/12/24
06:59 06:59 06:59
Intake Total 1580 / 1580 1845 / 1845
Balance 1580 / 1580 1845 / 1845
Review of Systems
-
History Source: Patient
All other systems: Reviewed and negative
[2024-06-11] MEDS: KCL 40 MEQ PO (12:56)
--- NOTE | 2024-06-11 12:58 | W.DS.TRANS ---
DC Summary - Rating Examiner
-
Discharge Instructions:
Discharge Diagnosis/Procedures Non-ulcer dyspepsia
Diet Regular
Activity No restrictions
Driving Restrictions As prior to admission
Bathing Restrictions None
Instructions:
Stand-Alone Forms:
Changes to Home Medications: No
Discharge Medications:
DC Medications w/original date entered in [facility]
cholecalciferol (vitamin D3) 50 mcg (2,000 unit) tablet (Vitamin D3) 50 mcg PO DAILY Supplement 01/10/23
hydroxychloroquine 200 mg tablet 200 mg PO HS lupus 01/10/23
lebyigpg-acx-sfge-FA-Ca carb-vit K 18 mg iron-400 mcg-500 mg tablet 1 tab PO DAILY Supplement 01/10/23
pantoprazole 40 mg granules delayed-release for susp in packet (Protonix) 40 mg PO BID Gastrointestinal Issue 01/10/23
pregabalin 200 mg capsule (Lyrica) 200 mg PO HS lupus 01/10/23
topiramate 200 mg tablet (Topamax) 250 mg PO HS migraine 01/10/23
eqhlkrxusz-jpfpkyogihskf-qwblyicy 50 mg-325 mg-40 mg tablet 1 tab PO Q6H PRN migraines 06/09/24
famotidine 20 mg tablet 20 mg PO BID #60 tabs 06/11/24
polyethylene glycol 3350 17 gram oral powder packet (HealthyLax) 17 g PO DAILYPRN PRN constipation #0 ea 06/11/24
prochlorperazine maleate 10 mg tablet (Compazine) 10 mg PO QID PRN nausea and vomiting #20 tabs 06/11/24
sucralfate 100 mg/mL oral suspension 1 g (10 mL) PO ACHS #414 mL 06/11/24
Home Medication Changes
Pending Results: No
[2024-06-11 13:00] VITALS: BP 128/97
--- NOTE | 2024-06-11 13:17 | CM ---
CM reviewed chart and noted dc order
Bedside meeting with pt and spouse
No dc needs noted
Discharge Disposition- home, no needs-spouse transport
[2024-06-11] MEDS: COMPAZINE 10 MG PO (13:28)
== END 2024-06-11 14:05 | disposition home or self-care (01) | DRG 392 ==
LOC: ED 13:33
PROVIDERS: Family Medicine; Student in an Organized Health Care Education/Training Program; ADMITTING PHYSICIAN Internal Medicine; ATTENDING PHYSICIAN Hospitalist; CONSULT PHYSICIAN Specialist; EMERGENCY PHYSICIAN Emergency Medicine; FAMILY PHYSICIAN Family Medicine
PROC: 0DB98ZX Excision of Duodenum, Via Natural or Artificial Opening Endoscopic, Diagnostic (ICD-10-PCS; 2024-06-10)
PROC: 0DB68ZX Excision of Stomach, Via Natural or Artificial Opening Endoscopic, Diagnostic (ICD-10-PCS; 2024-06-10)
PROC: 0DB78ZX Excision of Stomach, Pylorus, Via Natural or Artificial Opening Endoscopic, Diagnostic (ICD-10-PCS; 2024-06-10)
DX: K29.50 Unspecified chronic gastritis without bleeding (principal); Q62.39 Other obstructive defects of renal pelvis and ureter; K92.1 Melena; M32.9 Systemic lupus erythematosus, unspecified; G43.909 Migraine, unspecified, not intractable, without status migrainosus; K31.7 Polyp of stomach and duodenum; F41.9 Anxiety disorder, unspecified; K21.9 Gastro-esophageal reflux disease without esophagitis; K31.84 Gastroparesis; K58.0 Irritable bowel syndrome with diarrhea; K64.4 Residual hemorrhoidal skin tags; G89.29 Other chronic pain; Z96.0 Presence of urogenital implants; Z79.899 Other long term (current) drug therapy; Z87.11 Personal history of peptic ulcer disease; Z87.19 Personal history of other diseases of the digestive system; Z86.010 Personal history of colon polyps; Z88.0 Allergy status to penicillin; Z88.2 Allergy status to sulfonamides
CPT/HCPCS: 88305; 74176; 80048; 80053; 80306; 80307; 81003; 83690; 83735; 84100; 84703; 85025; 85027; 87045; 87046; 87070; 87324; 87427; 87449; 87798; 88342; 89055; 93005; 96361; 96374; 96375; 99285

== ENCOUNTER → 2024-08-08 12:51 | Outpatient (REF) | payer MEDICARE, OTHER, SELFPAY | LOC: HWRAD 12:51 | PROVIDERS: ATTENDING PHYSICIAN Family Medicine | DX: S62.643A Nondisplaced fracture of proximal phalanx of left middle finger, initial encounter for closed fracture (principal) | CPT/HCPCS: 73140 ==

== ENCOUNTER → 2024-12-10 14:07 | Outpatient (REF) | payer MEDICARE, OTHER, SELFPAY | LOC: RAD 14:07 | PROVIDERS: ATTENDING PHYSICIAN Family Medicine | DX: Z98.890 Other specified postprocedural states (principal) | CPT/HCPCS: 76770 ==

== ENCOUNTER → 2025-01-01 20:32 | Outpatient (REF) | payer MEDICARE, OTHER, SELFPAY | LOC: MRI 3T 20:32 | PROVIDERS: ATTENDING PHYSICIAN Psychiatry & Neurology Neurology; FAMILY PHYSICIAN Family Medicine | DX: R51.9 Headache, unspecified (principal) | CPT/HCPCS: 70551 ==

== ENCOUNTER → 2025-01-07 09:14 | Outpatient (REF) | payer MEDICARE, OTHER, SELFPAY | LOC: WDC 09:14 | PROVIDERS: ATTENDING PHYSICIAN Surgery; FAMILY PHYSICIAN Family Medicine | DX: N64.52 Nipple discharge (principal) | CPT/HCPCS: 76642; 77062; 77066 ==

== ENCOUNTER → 2025-02-14 18:31 | Outpatient (REF) | payer MEDICARE, OTHER, SELFPAY | LOC: MRI 3T 18:31 | PROVIDERS: ATTENDING PHYSICIAN Surgery; FAMILY PHYSICIAN Family Medicine | DX: N64.52 Nipple discharge (principal); Z80.3 Family history of malignant neoplasm of breast | CPT/HCPCS: 77049; A9585 ==

== ENCOUNTER → 2025-09-20 15:08 | Outpatient (REF) | payer MEDICARE, OTHER, SELFPAY | LOC: RAD 15:08 | PROVIDERS: ATTENDING PHYSICIAN Family Medicine | DX: N13.5 Crossing vessel and stricture of ureter without hydronephrosis (principal) | CPT/HCPCS: 76775 ==